=== PATIENT | female | born 1965 | race Caucasian/White ===

== ENCOUNTER → 2016-08-30 18:34 | Outpatient (CLI) | payer BC ==
[2016-04-05 06:26] VITALS: BMI 26.3
[~2016-08-30 18:34] MED LIST: CELEXA20 MG PO; HYDROCODONE-APA1 TAB PO; LOTENSIN5 MG PO; MULTIPLE VITAMI1 TA1 PO; NORVASC5 MG PO; VITAMIN D31000 UNIT PO
== END | disposition home or self-care (01) ==
LOC: D.MAMMO 13:00
DX: N63 Unspecified lump in breast (principal)

== ENCOUNTER 2017-10-25 19:28 | Emergency (ER) | payer BC ==
[2016-04-05 06:26] VITALS: BMI 26.3
== END 2017-10-25 22:45 | disposition home or self-care (01) ==
LOC: D.ER 19:28
DX: R51 Headache (principal); I10 Essential (primary) hypertension

== ENCOUNTER → 2017-10-27 09:36 | Outpatient (CLI) | payer BC ==
[2016-04-05 06:26] VITALS: BMI 26.3
== END | disposition home or self-care (01) ==
LOC: D.MRI 09:36
DX: R51 Headache (principal)

== ENCOUNTER 2017-12-10 01:59 | Emergency (ER) | payer BC ==
[~2017-12-10] VITALS: Ht 162.6 cm; Wt 71.8 kg
[2017-12-10 02:02] VITALS: Ht 162.6 cm; Wt 71.8 kg
[2017-12-10] MEDS ORDERED: PRAVACHOL20 MG PO (02:05)
[2017-12-10 02:31] LABS: BASOPHILS 0.4 % (0-2); EOSINOPHILS 3.4 % (0-7); HEMOGLOBIN 12.1 g/dL (12-16); IMMATURE GRANULOCYTES 0.1 % (0-5); LYMPHOCYTES 44.9 % (15-50); MCH 31.4 pg (26.0-34.0); MCHC 32.7 g/dL (31.0-37.0); MCV 96.1 fL (80.0-100.0); MEAN PLATELET VOLUME 10.4 fL (7.4-10.4); MONOCYTES 4.9 % (2-11); NEUTROPHILS 46.3 % (40-80); PLATELET COUNT 285 10x3/uL (130-400); RBC 3.85 10x6/uL (4.00-5.40); RDW 12.8 % (11.5-14.5)
[2017-12-10 02:40] LABS: ALBUMIN 3.3 g/dL (3.4-5.0); ALKALINE PHOSPHATASE 89 U/L (46-116); ALT (SGPT) 39 U/L (10-68); BILIRUBIN - TOTAL 0.25 mg/dL (0.2-1.3); CALC OSMOLALITY 279 mosm/kg (275-300); CALCIUM 8.8 mg/dL (8.5-10.1); CARBON DIOXIDE 31.2 mmol/L (21.0-32.0); CHLORIDE - SERUM 103 mmol/L (98-107); CREATININE - SERUM 0.7 mg/dL (0.6-1.3); GLUCOSE 100 mg/dL (74-106); POTASSIUM - SERUM 4.1 mmol/L (3.5-5.1); PROTEIN - SERUM 6.8 g/dL (6.4-8.2); SODIUM 141 mmol/L (136-145); UREA NITROGEN 11 mg/dL (7-18); eGFR NON AFRICAN AMERICAN > 90 mL/min (90-120)
[2017-12-10 02:44] LABS: AMYLASE - SERUM 69 U/L (25-115); LIPASE 213 U/L (73-393)
[2017-12-10 02:45] LABS: TROPONIN-I < 0.017 ng/mL (0.000-0.060)
[2017-12-10 03:19] LABS: APPEARANCE CLEAR (CLEAR); BILIRUBIN NEGATIVE (NEGATIVE); COLOR YELLOW (YELLOW); GLUCOSE NEGATIVE (NEGATIVE); KETONE SMALL mg/dL (NEGATIVE); NITRITE NEGATIVE (NEGATIVE); PROTEIN NEGATIVE (NEGATIVE); SPECIFIC GRAVITY 1.015 (1.005-1.020); UROBILINOGEN NORMAL (NORMAL)
[2017-12-10] MEDS ORDERED: ACETAMINOPHEN500 M1 PO (04:45)
[2017-12-10] MEDS ORDERED: ZOFRAN ODT4 MG/UDTAB PO (04:45)
[2017-12-10] MEDS ORDERED: CYCLOBENZAPRINE10 MG PO (04:45)
[2017-12-10] MEDS ORDERED: LEVSIN/ANASP0.125 MG PO (04:45)
[2017-12-10 04:48] VITALS: BP 118/74
[2017-12-10] MEDS ORDERED: PROTONIX40 MG PO (04:49)
== END 2017-12-10 04:55 | disposition home or self-care (01) ==
LOC: D.ER 01:59
PROVIDERS: Family Medicine
DX: K29.80 Duodenitis without bleeding (principal); R10.13 Epigastric pain; R11.2 Nausea with vomiting, unspecified; N20.0 Calculus of kidney

== ENCOUNTER → 2018-04-25 20:24 | Outpatient (CLI) | payer BC ==
[2017-12-10 02:02] VITALS: BMI 27.1
[~2018-04-25 20:24] MED LIST changes: +ACETAMINOPHEN500 M1 PO; +CYCLOBENZAPRINE10 MG PO; +LEVSIN/ANASP0.125 MG PO; +PRAVACHOL20 MG PO; +PROTONIX40 MG PO; +ZOFRAN ODT4 MG/UDTAB PO
== END | disposition home or self-care (01) ==
LOC: D.MAMMO 13:00
DX: Z12.31 Encounter for screening mammogram for malignant neoplasm of breast (principal)

== ENCOUNTER 2018-07-11 10:07 | Emergency (ER) | payer BC ==
[~2018-07-11] VITALS: Ht 162.6 cm; Wt 73.6 kg
[2018-07-11 10:26] VITALS: Ht 162.6 cm; Wt 73.6 kg
[2018-07-11 10:55] LABS: BASOPHILS 0 % (0-2); EOSINOPHILS 1.8 % (0-7); HEMATOCRIT 38.6 % (36.0-48.0); HEMOGLOBIN 12.9 g/dL (12-16); IMMATURE GRANULOCYTES 0.1 % (0-5); MCH 31.6 pg (26.0-34.0); MCHC 33.4 g/dL (31.0-37.0); MCV 94.6 fL (80.0-100.0); MONOCYTES 2.6 % (2-11); NEUTROPHILS 88.5 % (40-80); RBC 4.08 10x6/uL (4.00-5.40); RDW 12.6 % (11.5-14.5); WBC 8.2 10x3/uL (4.8-10.8)
[2018-07-11 10:56] LABS: PLATELET COUNT 226 10x3/uL (130-400)
[2018-07-11 11:14] LABS: ALBUMIN 3.2 g/dL (3.4-5.0); ALKALINE PHOSPHATASE 86 U/L (46-116); ALT (SGPT) 49 U/L (10-68); BILIRUBIN - TOTAL 0.29 mg/dL (0.2-1.3); CALC OSMOLALITY 282 mosm/kg (275-300); CALCIUM 8.1 mg/dL (8.5-10.1); CARBON DIOXIDE 28.6 mmol/L (21.0-32.0); CHLORIDE - SERUM 106 mmol/L (98-107); CREATININE - SERUM 0.6 mg/dL (0.6-1.3); GLUCOSE 95 mg/dL (74-106); PROTEIN - SERUM 6.6 g/dL (6.4-8.2); SODIUM 142 mmol/L (136-145); UREA NITROGEN 13 mg/dL (7-18); eGFR NON AFRICAN AMERICAN > 90 mL/min (90-120)
[2018-07-11 11:25] LABS: CKMB 0.4 U/L (0.0-3.6); CREATINE KINASE 45 UL (21-215); TROPONIN-I < 0.017 ng/mL (0.000-0.060)
[2018-07-11] MEDS ORDERED: ZANTAC300 MG PO (16:44)
[2018-07-11 16:56] VITALS: BP 127/85
== END 2018-07-11 16:57 | disposition home or self-care (01) ==
LOC: D.ER 10:07
PROVIDERS: Family Medicine
DX: R10.13 Epigastric pain (principal)

== ENCOUNTER → 2018-07-16 09:31 | Outpatient (CLI) | payer BC ==
[2018-07-11 10:26] VITALS: BMI 27.8
[~2018-07-16 09:31] MED LIST changes: +ZANTAC300 MG PO
== END | disposition home or self-care (01) ==
LOC: D.RAD 09:00
DX: R10.10 Upper abdominal pain, unspecified (principal)

== ENCOUNTER 2020-10-09 20:07 | Outpatient (CLI) | payer OTHER ==
[2018-07-11 10:26] VITALS: BMI 27.8
== END 2020-10-09 23:59 | disposition home or self-care (01) ==
LOC: D.MAMMO 20:07
PROVIDERS: ATTEND Family Medicine
DX: Z12.31 Encounter for screening mammogram for malignant neoplasm of breast (principal)